=== PATIENT | female | born 1955 | race Caucasian/White ===

== ENCOUNTER 2020-12-18 12:15 | Emergency (ER) | payer MEDICARE, OTHER ==
[2020-12-18] MEDS ORDERED: Sodium Chloride 0.9% 10 ML Syringe FLUSH PRN (12:23)
[2020-12-18 12:28] VITALS: BP 118/72; PULSE 106
--- NOTE | 2020-12-18 12:50 | EDM.PDOC ---
ED HPI GENERAL MEDICAL PROBLEM - General Chief Complaint: Chest Pain Stated Complaint: CHEST PAIN Time Seen by Provider: 12/18/20 12:23 Source of Information: Reports: Patient, RN Notes Reviewed History Limitations: Reports: No Limitations - History of Present Illness INITIAL COMMENTS - FREE TEXT/NARRATIVE: Patient is a 65-year-old female who presents to the ER for evaluation of her sudden onset back/chest discomfort. Patient notes she has been having ongoing issues with shortness of breath and chest discomfort since this last . She was seen by her provider in [facility] on for shortness of breath, was placed on a course of prednisone, and she notes that this is helped the shortness of breath. She states that today however she was laying on her couch, doing nothing at all when that she had a shooting pain into her back between her shoulder blades at around 10 AM. She says it is hard to describe, but notes that it is very sharp. She is not having any nausea/vomiting/diarrhea, she does not think she has any indigestion or heartburn issues. She has had no fevers or chills that she is aware of, but she is pretty diaphoretic on the time of triage. She notes that she had x-ray, and her BNP was done on and her BNP was 487. She has an appointment with Dr. Preciado on December 19, to get scheduled for possible echocardiogram, and cardiac stress test. Patient's pain is roughly 6 out of 10, she notes that she took a tramadol this morning, but this did not seem to help. She notes that nothing seems to really make it worse or nothing really seems to make it get better. - Related Data Allergies Allergy/AdvReac Type Severity Reaction Status Date / Time grover flavor Allergy Anaphylactic Verified 09/28/14 11:20 Shock colesevelam HCl Allergy Muscle Verified 09/28/14 11:20 [From WelChol] Weakness erythromycin lactobionate Allergy Hives Verified 09/28/14 11:20 [From Erythrocin] metoclopramide Allergy Arrhythmias Verified 09/28/14 11:20 metoprolol succinate Allergy Cough Verified 09/28/14 11:20 [From Toprol XL] nitrofurantoin Allergy Vomiting Verified 09/28/14 11:20 macrocrystalline [From Macrodantin] Kfjtanu-Lsa-Dxs Reductase Allergy Muscle Verified 09/28/14 11:20 Inhibitor Weakness terbutaline Allergy Hives Verified 09/28/14 11:20 opsite Allergy Itching Uncoded 09/21/14 13:14 tape Allergy Itching Uncoded 09/21/14 13:14 Home Meds: Home Meds Acetaminophen [Tylenol Extra Strength] 1,000 mg PO BID 09/21/14 [History] Albuterol [Proventil HFA] 2 puff INH DAILY PRN 09/21/14 [History] Aspirin [Adult Low Dose Aspirin EC] 81 mg PO DAILY 09/21/14 [History] Budesonide [Rhinocort Aqua] 2 spray TANIA DAILY 09/21/14 [History] Calcium Carb/Magnesium Oxid/D3 [Calcium Magnesium + D] 1 tab PO DAILY 09/21/14 [History] Cholecalciferol (Vitamin D3) [Vitamin D3] 1 tab PO DAILY 09/21/14 [History] Fish Oil/Borage/Flax/Om3,6,9 1 [Matthews 3-6-9 Complex Softgel] 5 tab PO DAILY 09/21/14 [History] Furosemide 20 mg PO DAILY 09/21/14 [History] Furosemide 40 mg PO DAILY 09/21/14 [History] Gabapentin 300 - 600 mg PO BEDTIME 09/21/14 [History] LORazepam [Ativan] 1 mg PO BEDTIME 09/21/14 [History] Lansoprazole 30 mg PO DAILY 09/21/14 [History] Levothyroxine Sodium 175 mcg PO DAILY 09/21/14 [History] Losartan [Cozaar] 100 mg PO DAILY 09/21/14 [History] Multivitamin [Multivitamins] 1 tab PO DAILY 09/21/14 [History] Naproxen Sodium [Aleve] 440 mg PO BID 09/21/14 [History] Pravastatin Sodium 20 mg PO ASDIRECTED 09/21/14 [History] Sertraline HCl 100 mg PO DAILY 09/21/14 [History] Ticagrelor [Brilinta] 90 mg PO BID 09/21/14 [History] Ubidecarenone [Co Q-10] 100 mg PO DAILY 09/21/14 [History] traMADol HCl [Tramadol HCl] 100 mg PO BID 09/21/14 [History] Potassium Chloride 40 meq PO DAILY #14 tablet.er 12/18/20 [Rx] Past Medical History Cardiovascular History: Reports: NC (?questionable), Stents ED ROS GENERAL - Review of Systems Review Of Systems: Comprehensive ROS is negative, except as noted in HPI. ED EXAM, GENERAL - Physical Exam Exam: See Below Exam Limited By: No Limitations General Appearance: Alert, WD/WN, No Apparent Distress (pt has generalized diaphoreseis) Respiratory/Chest: No Respiratory Distress, Lungs Clear, Normal Breath Sounds, No Accessory Muscle Use, Chest Non-Tender Cardiovascular: Normal Peripheral Pulses, Regular Rate, Rhythm, No Edema Peripheral Pulses: 2+: Radial (L), Radial (R) Extremities: Normal Inspection, Normal Capillary Refill Neurological: Alert, Oriented, Normal Cognition, No Motor/Sensory Deficits Psychiatric: Normal Affect, Normal Mood Skin Exam: Warm, Intact, Normal Color, No Rash, Diaphoretic (general diaphoresis) #1 Interpretation EKG Date: 12/18/20 Time: 12:47 Rhythm: NSR Rate (Beats/Min): 85 Wana: Normal P-Wave: Present QRS: Normal ST-T: Normal QT: Prolonged (QTc at 522) EKG Interpretation Comments: No obvious ischemia or acute ST changes noted, reviewed by myself and Dr. Hdez. Course - Vital Signs Last Recorded V/S: Last Vital Signs Temp 97.2 F 12/18/20 12:24 Pulse 106 H 12/18/20 12:24 Resp 26 H 12/18/20 12:24 BP 118/72 12/18/20 12:24 Pulse Ox 97 12/18/20 12:24 - Orders/Labs/Meds Orders: Active Orders 24 hr Category Date Time Status EKG Documentation Completion [RC] STAT Care 12/18/20 12:24 Active Peripheral IV Care [RC] . DIRECTED Care 12/18/20 12:24 Active Sodium Chloride 0.9% [Saline Flush] Med 12/18/20 12:23 Active 10 ml FLUSH ASDIRECTED PRN Peripheral IV Insertion Adult [OM.PC] Stat Oth 12/18/20 12:24 Ordered Medication Orders Sodium Chloride (Sodium Chloride 0.9% 10 Ml Syringe) 10 ml FLUSH ASDIRECTED PRN PRN Reason: Keep Vein Open Last Admin: 12/18/20 12:30 Dose: 10 ml Documented by: JAMESON Labs: Laboratory Tests 12/18/20 12/18/20 12/18/20 Range/Units 12:30 12:30 12:30 WBC 9.36 (3.98-10.04) K/mm3 RBC 4.02 (3.98-5.22) M/mm3 Hgb 11.7 (11.2-15.7) gm/dl Hct 35.8 (34.1-44.9) % MCV 89.1 (79.4-94.8) fl MCH 29.1 (25.6-32.2) pg MCHC 32.7 (32.2-35.5) g/dl RDW Std Deviation 46.9 H (36.4-46.3) fL Plt Count 330 (182-369) K/mm3 MPV 10.4 (9.4-12.3) fl Neut % (Auto) 69.2 (34.0-71.1) % Lymph % (Auto) 23.1 (19.3-51.7) % Leslie % (Auto) 7.4 (4.7-12.5) % Eos % (Auto) 0.1 L (0.7-5.8) Baso % (Auto) 0.1 (0.1-1.2) % Neut # (Auto) 6.48 H (1.56-6.13) K/mm3 Lymph # (Auto) 2.16 (1.18-3.74) K/mm3 Leslie # (Auto) 0.69 H (0.24-0.36) K/mm3 Eos # (Auto) 0.01 L (0.04-0.36) K/mm3 Baso # (Auto) 0.01 (0.01-0.08) K/mm3 PT 10.8 (9.7-12.0) SECONDS INR 1.01 APTT 22.9 (21.7-31.4) SECONDS Sodium 146 H (136-145) mEq/L Potassium 2.9 L (3.5-5.1) mEq/L Chloride 106 (98-107) mEq/L Carbon Dioxide 26 (21-32) mEq/L Anion Gap 16.9 H (5-15) BUN 26 H (7-18) mg/dL Creatinine 1.1 H (0.55-1.02) mg/dL Est Cr Clr Drug Dosing 41.05 mL/min Estimated GFR (MDRD) 50 (>60) mL/min BUN/Creatinine Ratio 23.6 H (14-18) Glucose 103 H (70-99) mg/dL Calcium 8.5 (8.5-10.1) mg/dL Magnesium 1.8 (1.8-2.4) mg/dL Total Bilirubin 0.3 (0.2-1.0) mg/dL AST 17 (15-37) U/L ALT 34 (14-59) U/L Alkaline Phosphatase 69 (46-116) U/L Troponin I 0.020 (0.00-0.056) ng/mL NT-Pro-B Natriuret Pep (0-125) pg/mL Total Protein 7.7 (6.4-8.2) g/dl Albumin 3.4 (3.4-5.0) g/dl Globulin 4.3 gm/dL Albumin/Globulin Ratio 0.8 L (1-2) 12/18/20 12/18/20 Range/Units 12:30 15:32 WBC (3.98-10.04) K/mm3 RBC (3.98-5.22) M/mm3 Hgb (11.2-15.7) gm/dl Hct (34.1-44.9) % MCV (79.4-94.8) fl MCH (25.6-32.2) pg MCHC (32.2-35.5) g/dl RDW Std Deviation (36.4-46.3) fL Plt Count (182-369) K/mm3 MPV (9.4-12.3) fl Neut % (Auto) (34.0-71.1) % Lymph % (Auto) (19.3-51.7) % Leslie % (Auto) (4.7-12.5) % Eos % (Auto) (0.7-5.8) Baso % (Auto) (0.1-1.2) % Neut # (Auto) (1.56-6.13) K/mm3 Lymph # (Auto) (1.18-3.74) K/mm3 Leslie # (Auto) (0.24-0.36) K/mm3 Eos # (Auto) (0.04-0.36) K/mm3 Baso # (Auto) (0.01-0.08) K/mm3 PT (9.7-12.0) SECONDS INR APTT (21.7-31.4) SECONDS Sodium (136-145) mEq/L Potassium (3.5-5.1) mEq/L Chloride (98-107) mEq/L Carbon Dioxide (21-32) mEq/L Anion Gap (5-15) BUN (7-18) mg/dL Creatinine (0.55-1.02) mg/dL Est Cr Clr Drug Dosing mL/min Estimated GFR (MDRD) (>60) mL/min BUN/Creatinine Ratio (14-18) Glucose (70-99) mg/dL Calcium (8.5-10.1) mg/dL Magnesium (1.8-2.4) mg/dL Total Bilirubin (0.2-1.0) mg/dL AST (15-37) U/L ALT (14-59) U/L Alkaline Phosphatase (46-116) U/L Troponin I 0.020 (0.00-0.056) ng/mL NT-Pro-B Natriuret Pep 8497 H (0-125) pg/mL Total Protein (6.4-8.2) g/dl Albumin (3.4-5.0) g/dl Globulin gm/dL Albumin/Globulin Ratio (1-2) Meds: Medications Generic Name Dose Route Start Last Admin Trade Name Brandon PRN Reason Stop Dose Admin Sodium Chloride 10 ml 12/18/20 12:23 12/18/20 12:30 Sodium Chloride 0.9% 10 Ml Syringe FLUSH 10 ml ASDIRECTED PRN Administration Keep Vein Open Discontinued Medications Generic Name Dose Route Start Last Admin Trade Name Freq PRN Reason Stop Dose Admin Al Hydroxide/Mg Hydroxide 30 0 ml 12/18/20 15:53 ml/ Lidocaine HCl 15 ml PO 12/18/20 15:54 ONETIME ONE Potassium Chloride 40 meq 12/18/20 13:15 12/18/20 13:41 Potassium Chloride 20 Meq Tab.Er PO 12/18/20 13:16 40 meq ONETIME ONE Administration - Re-Assessments/Exams Free Text/Narrative Re-Assessment/Exam: 12/18/20 13:10 Patient presents to the ER for her chest pain, EKG was done at time of triage and shows no acute ST change or abnormalities appreciable myself or Dr. Hdez. Labs will be obtained for further evaluation, chest x-ray was read as findings suspicious for mild CHF. 12/18/20 13:19 Laboratory evaluation demonstrates a within normal limits CBC, coagulation studies are acceptable, patient's metabolic panel is impressive for a slightly low sodium at 2.9, for which I have ordered 40 mEq oral potassium. Patient does appear to be slightly dehydrated, by slightly elevated creatinine, anion gap. Her troponin is 0.020. Still awaiting BNP level at this time. 12/18/20 13:48 We will go ahead and do a repeat 3-hour troponin, to make sure that it is getting better as expected. Orders have been placed for 15:30. Patient has been made aware and she is agreeable to this plan. 12/18/20 15:54 Awaiting the 3-hour troponin level, nursing staff did going to reassess the patient and they note that she is having some heartburn or indigestion, we will go ahead and give her a GI cocktail. Her BNP has come back 8497, highly suspect that the small bump in troponin is due to the BNP elevation and heart strain. Current medication list demonstrates the patient is on Lasix 40 mg daily I will have her increase that to twice daily, and have her take some potassium supplements in the interim, she will follow up with Dr. Preciado tomorrow, she should have labs redrawn within the next few days to make sure that her potassium is staying within normal limits. 12/18/20 16:08 Troponin stayed at 0.020. We will go ahead and discharge the patient home with general recommendations along with the above plan. Departure - Departure Time of Disposition: 15:56 Disposition: Home, Self-Care 01 Condition: Good Clinical Impression: Hypokalemia, Atypical chest pain CHF (congestive heart failure) Qualifiers: Heart failure type: other Qualified Code(s): I50.9 - Heart failure, unspecified Prescriptions: Potassium Chloride 40 meq PO DAILY #14 tablet.er Instructions: Heart Failure, Self Care, [id number], Heart Failure Eating Plan Referrals: Den Preciado MD [Primary Care Provider] - Forms: ED Department Discharge Additional Instructions: You were evaluated in the ER today for your back pain. EKG, chest x-ray, and laboratory evaluation was most conclusive with an exacerbation of congestive heart failure. As you noted, you have a appointment with Dr. Preciado tomorrow for ongoing management regarding possible echo and cardiac stress test, please go to this appointment tomorrow and get scheduled for these tests as this would help evaluate well how your heart is actually functioning. Your troponin level is thought to have a small increase, due to the amount of fluid/CHF you are having. This is more of a heart strain type pattern, and sometimes can elevate your troponin level a small amount. Your BNP at today's visit was 8497, which is quite elevated. You will need to start taking your Lasix, 40 mg twice daily, this is an increase from 1 tablet daily. You will also need to start taking oral potassium, as your potassium was low at this ER visit. The increase Lasix dose, will continue to cause derangements in your potassium, hence the need for potassium oral replacement. Highly recommend that you have your laboratory evaluation retaken, sometime mid to late next week, to make sure that potassium level is within normal limits, and that your BMP is improving. Your potassium prescription was sent to the [place] pharmacy located in the [facility] store, you will need to go there tomorrow during normal business hours to pick this up and take as directed. Please return to the ER at any time if symptoms change or worsen. Sepsis Event Note (ED) - Evaluation Sepsis Screening Result: No Definite Risk - Focused Exam Vital Signs: Vital Signs Temp Pulse Resp BP Pulse Ox 12/18/20 12:24 97.2 F 106 H 26 H 118/72 97 - My Orders Last 24 Hours: My Active Orders 12/18/20 12:23 Sodium Chloride 0.9% [Saline Flush] 10 ml FLUSH ASDIRECTED PRN 12/18/20 12:24 EKG Documentation Completion [RC] STAT Peripheral IV Care [RC] . DIRECTED Peripheral IV Insertion Adult [OM.PC] Stat - Assessment/Plan Last 24 Hours: My Active Orders 12/18/20 12:23 Sodium Chloride 0.9% [Saline Flush] 10 ml FLUSH ASDIRECTED PRN 12/18/20 12:24 EKG Documentation Completion [RC] STAT Peripheral IV Care [RC] . DIRECTED Peripheral IV Insertion Adult [OM.PC] Stat
--- NOTE | 2020-12-18 13:12 | CR ---
Chest: Portable view of the chest was obtained. Comparison: No prior chest imaging is available. Heart is enlarged. Pulmonary vessels are congested. Lungs otherwise are clear. Bony structures are grossly intact. Impression: 1. Findings suspicious for mild CHF. Diagnostic code #3
[2020-12-18] MEDS ORDERED: Potassium Chloride 20 MEQ Tab.ER PO ONE (13:15)
[2020-12-18] MEDS ORDERED: Alum Hydrox/Mag Hydrox/Simeth 30 ML, Lidocaine 2% 15 ML PO ONE ×2 (15:53)
== END 2020-12-18 16:50 | disposition home or self-care (01) ==
LOC: JD.ED 12:15
DX: I50.9 Heart failure, unspecified (principal); E87.6 Hypokalemia; I25.2 Old myocardial infarction; Z91.018 Allergy to other foods; Z88.1 Allergy status to other antibiotic agents; Z88.8 Allergy status to other drugs, medicaments and biological substances; Z91.048 Other nonmedicinal substance allergy status; Z79.82 Long term (current) use of aspirin; Z79.899 Other long term (current) drug therapy
CPT/HCPCS: 36415; 71045; 80053; 83735; 83880; 84484; 85025; 85610; 85730; 93005; 99285; A9270; 93010; 99284

== ENCOUNTER 2021-01-02 20:53 | Emergency (ER) | payer MEDICARE, OTHER ==
[2021-01-02 21:27] VITALS: BP 98/64; PULSE 94
[2021-01-02] MEDS ORDERED: Ondansetron 4 MG/2 ML SDV IVPUSH ONE (21:38)
[2021-01-02] MEDS ORDERED: Sodium Chloride 0.9% 10 ML Syringe FLUSH PRN (21:38)
[2021-01-02] MEDS ORDERED: Sodium Chloride 0.9% 1,000 ML IV SCH (21:45)
--- NOTE | 2021-01-02 21:57 | EDM.PDOC ---
ED HPI GENERAL MEDICAL PROBLEM - General Chief Complaint: Gastrointestinal Problem Stated Complaint: VOMITING Time Seen by Provider: 01/02/21 21:24 Source of Information: Reports: Patient, Family History Limitations: Reports: No Limitations - History of Present Illness INITIAL COMMENTS - FREE TEXT/NARRATIVE: The patient presents for nausea and vomiting. This started yesterday about 3pm after she was discharged from the hospital after getting a heart cath. She did not need stents. She has no pain such as chest pain, abdominal pain, or headache. She just cannot keep anything down. She has no fever but she does have chills. She has no diarrhea. She has no cough or congestion. Onset: Gradual Duration: Day(s): (Yesterda at 3pm) Severity: Moderate Improves with: Reports: None Worsens with: Reports: None Associated Symptoms: Reports: Fever/Chills, Nausea/Vomiting. Denies: Chest Pain, Cough, Headaches, Shortness of Breath - Related Data Allergies Allergy/AdvReac Type Severity Reaction Status Date / Time grover flavor Allergy Severe Anaphylactic Verified 01/03/21 00:33 Shock colesevelam HCl Allergy Severe Muscle Verified 01/03/21 00:33 [From WelChol] Weakness erythromycin lactobionate Allergy Severe Hives Verified 01/03/21 00:33 [From Erythrocin] metoclopramide Allergy Severe Arrhythmias Verified 01/03/21 00:33 metoprolol succinate Allergy Severe Cough Verified 01/03/21 00:33 [From Toprol XL] nitrofurantoin Allergy Severe Vomiting Verified 01/03/21 00:33 macrocrystalline [From Macrodantin] Nsbratc-[id number]-Ttb Reductase Allergy Severe Muscle Verified 01/03/21 00:33 Inhibitor Weakness terbutaline Allergy Severe Hives Verified 01/03/21 00:33 opsite Allergy Severe Itching Uncoded 01/03/21 00:33 tape Allergy Severe Itching Uncoded 01/03/21 00:33 Home Meds: Home Meds Acetaminophen [Tylenol Extra Strength] 1,000 mg PO BID 09/21/14 [History] Albuterol [Proventil HFA] 2 puff INH DAILY PRN 09/21/14 [History] Aspirin [Adult Low Dose Aspirin EC] 81 mg PO DAILY 09/21/14 [History] Budesonide [Rhinocort Aqua] 2 spray TANIA DAILY 09/21/14 [History] Calcium Carb/Magnesium Oxid/D3 [Calcium Magnesium + D] 1 tab PO DAILY 09/21/14 [History] Cholecalciferol (Vitamin D3) [Vitamin D3] 1 tab PO DAILY 09/21/14 [History] Fish Oil/Borage/Flax/Om3,6,9 1 [[place] 3-6-9 Complex Softgel] 5 tab PO DAILY 09/21/14 [History] Furosemide 40 mg PO DAILY 09/21/14 [History] Gabapentin 300 - 600 mg PO BEDTIME 09/21/14 [History] LORazepam [Ativan] 1.5 mg PO BEDTIME 09/21/14 [History] Lansoprazole 30 mg PO DAILY 09/21/14 [History] Losartan [Cozaar] 50 mg PO DAILY 09/21/14 [History] Multivitamin [Multivitamins] 1 tab PO DAILY 09/21/14 [History] Naproxen Sodium [Aleve] 440 mg PO BID 09/21/14 [History] Sertraline HCl 1.5 tab PO DAILY 09/21/14 [History] Ticagrelor [Brilinta] 90 mg PO BID 09/21/14 [History] Ubidecarenone [Co Q-10] 100 mg PO DAILY 09/21/14 [History] traMADol HCl [Tramadol HCl] 100 mg PO Q6HR 09/21/14 [History] Potassium Chloride 40 meq PO DAILY #14 tablet.er 12/18/20 [Rx] Levothyroxine Sodium [Levothyroxine] 137 mcg PO DAILY 01/03/21 [History] Ondansetron [Zofran ODT] 4 mg PO Q6H PRN #20 tab.dis 01/03/21 [Rx] Past Medical History HEENT History: Reports: Impaired Vision Other HEENT History: wears eyeglasses. 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 Endocrine/Metabolic History: Reports: Hypothyroidism Dermatologic History: Reports: Eczema - Infectious Disease History Infectious Disease History: Reports: Measles, Mumps, Shingles - Past Surgical History Female Surgical History: Reports: Hysterectomy Musculoskeletal Surgical History: Reports: Knee Replacement Social & Family History - Family History Family Medical History: No Pertinent Family History - Tobacco Use Tobacco Use Status *Q: Never Tobacco User Second Hand Smoke Exposure: No - Caffeine Use Caffeine Use: Reports: Soda - Recreational Drug Use Recreational Drug Use: No ED ROS GENERAL - Review of Systems Review Of Systems: See Below Constitutional: Reports: Chills. Denies: Fever HEENT: Reports: No Symptoms Respiratory: Reports: No Symptoms Cardiovascular: Reports: No Symptoms Endocrine: Reports: No Symptoms GI/Abdominal: Reports: Nausea, Vomiting. Denies: Abdominal Pain, Diarrhea : Reports: No Symptoms Musculoskeletal: Reports: No Symptoms Skin: Reports: No Symptoms ED EXAM, GI/ABD - Physical Exam Exam: See Below Exam Limited By: No Limitations General Appearance: Alert, No Apparent Distress Ears: Normal External Exam Nose: Normal Inspection Head: Atraumatic, Normocephalic Neck: Normal Inspection Respiratory/Chest: No Respiratory Distress, Lungs Clear, Normal Breath Sounds Cardiovascular: Regular Rate, Rhythm, No Edema, No Murmur GI/Abdominal Exam: Soft, Non-Tender, No Organomegaly, No Mass Back Exam: Normal Inspection Extremities: Normal Inspection Neurological: Alert, Oriented, No Motor/Sensory Deficits #1 Interpretation EKG Date: 01/02/21 Time: 22:10 Rhythm: NSR Rate (Beats/Min): 91 [place]: Normal P-Wave: Present QRS: Normal ST-T: Other (global flattened T waves) QT: Prolonged #2 Interpretation EKG Date: 01/03/21 Time: 04:34 Rhythm: Other (sinus tachycardia) Rate (Beats/Min): 100 [place]: Normal P-Wave: Present QRS: Normal ST-T: Normal QT: Prolonged Course - Vital Signs Last Recorded V/S: Last Vital Signs Temp 96.5 F L 01/02/21 21:22 Pulse 94 01/02/21 21:22 Resp 20 01/02/21 21:22 BP 98/64 01/02/21 21:22 Pulse Ox 98 01/02/21 21:22 - Orders/Labs/Meds Orders: Active Orders 24 hr Category Date Time Status EKG Documentation Completion [RC] ASDIRECTED Care 01/02/21 21:52 Active EKG Documentation Completion [RC] ASDIRECTED Care 01/03/21 04:52 Active Peripheral IV Care [RC] . DIRECTED Care 01/02/21 21:38 Active Abdomen Pelvis wo Cont [CT] Stat Exams 01/03/21 00:47 Taken Sodium Chloride 0.9% [Normal Saline] 1,000 ml Med 01/02/21 21:45 Active IV .BOLUS Sodium Chloride 0.9% [Saline Flush] Med 01/02/21 21:38 Active 10 ml FLUSH ASDIRECTED PRN ED Antiemetic Medication Reflex [OM.PC] Click to Edit Oth 01/02/21 21:38 Ordered Peripheral IV Insertion Adult [OM.PC] Urgent Oth 01/02/21 21:38 Ordered EKG 12 Lead [EK] Stat Ther 01/02/21 21:52 Ordered EKG 12 Lead [EK] Stat Ther 01/03/21 04:51 Ordered Medication Orders Sodium Chloride (Normal Saline) 1,000 mls @ 1,000 mls/hr IV .BOLUS RAYMOND Last Admin: 01/02/21 21:59 Dose: 1,000 mls/hr Documented by: MATHEW Sodium Chloride (Sodium Chloride 0.9% 10 Ml Syringe) 10 ml FLUSH ASDIRECTED PRN PRN Reason: Keep Vein Open Last Admin: 01/02/21 22:25 Dose: 10 ml Documented by: EDISON Labs: Laboratory Tests 01/02/21 01/02/21 01/02/21 Range/Units 22:27 22:27 22:47 WBC 7.96 (3.98-10.04) K/mm3 RBC 4.16 (3.98-5.22) M/mm3 Hgb 12.1 (11.2-15.7) gm/dl Hct 36.7 (34.1-44.9) % MCV 88.2 (79.4-94.8) fl MCH 29.1 (25.6-32.2) pg MCHC 33.0 (32.2-35.5) g/dl RDW Std Deviation 44.7 (36.4-46.3) fL Plt Count 194 D (182-369) K/mm3 MPV 10.7 (9.4-12.3) fl Neut % (Auto) 68.2 (34.0-71.1) % Lymph % (Auto) 22.4 (19.3-51.7) % Faulk % (Auto) 8.5 (4.7-12.5) % Eos % (Auto) 0.3 L (0.7-5.8) Baso % (Auto) 0.3 (0.1-1.2) % Neut # (Auto) 5.44 (1.56-6.13) K/mm3 Lymph # (Auto) 1.78 (1.18-3.74) K/mm3 Faulk # (Auto) 0.68 H (0.24-0.36) K/mm3 Eos # (Auto) 0.02 L (0.04-0.36) K/mm3 Baso # (Auto) 0.02 (0.01-0.08) K/mm3 Sodium 142 (136-145) mEq/L Potassium 3.7 (3.5-5.1) mEq/L Chloride 107 (98-107) mEq/L Carbon Dioxide 20 L (21-32) mEq/L Anion Gap 18.7 H (5-15) BUN 12 (7-18) mg/dL Creatinine 0.9 (0.55-1.02) mg/dL Est Cr Clr Drug Dosing TNP Estimated GFR (MDRD) > 60 (>60) mL/min BUN/Creatinine Ratio 13.3 L (14-18) Glucose 91 (70-99) mg/dL Calcium 9.1 (8.5-10.1) mg/dL Total Bilirubin 0.5 (0.2-1.0) mg/dL AST 29 (15-37) U/L ALT 35 (14-59) U/L Alkaline Phosphatase 70 (46-116) U/L Troponin I < 0.017 (0.00-0.056) ng/mL Total Protein 7.0 (6.4-8.2) g/dl Albumin 3.2 L (3.4-5.0) g/dl Globulin 3.8 gm/dL Albumin/Globulin Ratio 0.8 L (1-2) Lipase 85 (73-393) U/L Urine Color (Yellow) Urine Appearance (Clear) Urine pH (5.0-8.0) Ur Specific [place] (1.005-1.030) Urine Protein (Negative) Urine Glucose (UA) (Negative) Urine Ketones (Negative) Urine Occult Blood (Negative) Urine Nitrite (Negative) Urine Bilirubin (Negative) Urine Urobilinogen (0.2-1.0) Ur Leukocyte Esterase (Negative) U Hyaline Cast (Auto) (0-5) /lpf Urine RBC (0-5) /hpf Urine WBC (0-5) /hpf Ur Squamous Epith Cells (0-5) /hpf Urine Bacteria (FEW) /hpf Urine Mucus (FEW) /hpf 01/03/21 01/03/21 Range/Units 02:00 04:37 WBC (3.98-10.04) K/mm3 RBC (3.98-5.22) M/mm3 Hgb (11.2-15.7) gm/dl Hct (34.1-44.9) % MCV (79.4-94.8) fl MCH (25.6-32.2) pg MCHC (32.2-35.5) g/dl RDW Std Deviation (36.4-46.3) fL Plt Count (182-369) K/mm3 MPV (9.4-12.3) fl Neut % (Auto) (34.0-71.1) % Lymph % (Auto) (19.3-51.7) % Faulk % (Auto) (4.7-12.5) % Eos % (Auto) (0.7-5.8) Baso % (Auto) (0.1-1.2) % Neut # (Auto) (1.56-6.13) K/mm3 Lymph # (Auto) (1.18-3.74) K/mm3 Faulk # (Auto) (0.24-0.36) K/mm3 Eos # (Auto) (0.04-0.36) K/mm3 Baso # (Auto) (0.01-0.08) K/mm3 Sodium (136-145) mEq/L Potassium (3.5-5.1) mEq/L Chloride (98-107) mEq/L Carbon Dioxide (21-32) mEq/L Anion Gap (5-15) BUN (7-18) mg/dL Creatinine (0.55-1.02) mg/dL Est Cr Clr Drug Dosing Estimated GFR (MDRD) (>60) mL/min BUN/Creatinine Ratio (14-18) Glucose (70-99) mg/dL Calcium (8.5-10.1) mg/dL Total Bilirubin (0.2-1.0) mg/dL AST (15-37) U/L ALT (14-59) U/L Alkaline Phosphatase (46-116) U/L Troponin I 0.031 (0.00-0.056) ng/mL Total Protein (6.4-8.2) g/dl Albumin (3.4-5.0) g/dl Globulin gm/dL Albumin/Globulin Ratio (1-2) Lipase (73-393) U/L Urine Color Yellow (Yellow) Urine Appearance Clear (Clear) Urine pH 5.5 (5.0-8.0) Ur Specific [place] > or = 1.030 (1.005-1.030) Urine Protein Trace H (Negative) Urine Glucose (UA) Negative (Negative) Urine Ketones 2+ H (Negative) Urine Occult Blood Negative (Negative) Urine Nitrite Negative (Negative) Urine Bilirubin 2+ H (Negative) Urine Urobilinogen 0.2 (0.2-1.0) Ur Leukocyte Esterase Negative (Negative) U Hyaline Cast (Auto) 0-5 (0-5) /lpf Urine RBC 0-5 (0-5) /hpf Urine WBC 0-5 (0-5) /hpf Ur Squamous Epith Cells 0-5 (0-5) /hpf Urine Bacteria Few (FEW) /hpf Urine Mucus Many H (FEW) /hpf Meds: Medications Generic Name Dose Route Start Last Admin Trade Name Freq PRN Reason Stop Dose Admin Sodium Chloride 1,000 mls @ 1,000 mls/hr 01/02/21 21:45 01/02/21 21:59 Normal Saline IV 1,000 mls/hr .BOLUS RAYMOND Administration Sodium Chloride 10 ml 01/02/21 21:38 01/02/21 22:25 Sodium Chloride 0.9% 10 Ml Syringe FLUSH 10 ml ASDIRECTED PRN Administration Keep Vein Open Discontinued Medications Generic Name Dose Route Start Last Admin Trade Name Freq PRN Reason Stop Dose Admin Diphenhydramine HCl 50 mg 01/02/21 23:56 01/03/21 00:03 Diphenhydramine 50 Mg/Ml Sdv IVPUSH 01/02/21 23:57 50 mg ONETIME ONE Administration Famotidine 20 mg 01/03/21 02:37 01/03/21 02:46 Famotidine 20 Mg/2 Ml Sdv IVPUSH 01/03/21 02:38 20 mg ONETIME ONE Administration Hydromorphone HCl 0.5 mg 01/03/21 03:45 01/03/21 03:50 Hydromorphone 0.5 Mg/0.5 Ml Syringe IVPUSH 01/03/21 03:46 0.5 mg ONETIME ONE Administration Sodium Chloride 1,000 mls @ 1,000 mls/hr 01/02/21 23:09 01/02/21 23:35 Normal Saline IV 01/03/21 00:08 1,000 mls/hr ONETIME ONE Administration Metoclopramide HCl 10 mg 01/02/21 23:20 01/02/21 23:35 Metoclopramide 10 Mg/2 Ml Sdv IVPUSH 01/02/21 23:21 10 mg ONETIME ONE Administration Ondansetron HCl 4 mg 01/02/21 21:38 01/02/21 21:59 Ondansetron 4 Mg/2 Ml Sdv IVPUSH 01/02/21 21:39 4 mg ONETIME ONE Administration Ondansetron HCl 4 mg 01/03/21 02:37 01/03/21 02:46 Ondansetron 4 Mg/2 Ml Sdv IVPUSH 01/03/21 02:38 4 mg ONETIME ONE Administration - Re-Assessments/Exams Free Text/Narrative Re-Assessment/Exam: 01/02/21 21:56 I ordered an IV NS 1L bolus, zofran 4mg IV, labs, UA, and EKG. 01/02/21 22:32 Her EKG shows a NSR with no acute changes. 01/03/21 00:36 Her CBC looks good. Her anion gap was a little elevated at 18.7. Her lipase is normal. She felt a little better. I ordered some reglan 10mg IV and more fluids. I went back in and she was a little anxious and did not know how she felt. I think she may be reacting to the reglan. I ordered some benadryl 50mg IV to help with that and let her rest. Her son caught me outside the room and said she is under lots of stress. Her is at [facility] for brain cancer and may this week. She also just had an angiogram. 01/03/21 02:[address] shows increased attenuation of the gallbladder contents which may rep resent sludge, stones or vicarious excretion of previous intravenous contrast load. No associated CT signs of cholecystitis. Post hysterectomy. She still does not feel right. I will give her a dose of zofran and some pepcid. 01/03/21 06:39 She still had some nausea and discomfort in her upper abdomen. I ordered some dilaudid 0.5mg IV. My nurse noticed some PVCs on her heart tracing. I ordered a repeat EKG and a repeat troponin. Her repeat EKG shows no change from prior. Her repeat EKG was normal. She wanted to try some ice water and that so far has stayed down. We had a long talk. She is dealing with lots of issues. Her has lung cancer with mets to the brain and he is on end of life care at [facility] in [place]. He is not expected to survive much longer. She had an appointment with her [employer] supervisor on Saturday and she was a direct admit to the hospital in [place] after that and had an angiogram. The angiogram looked good and she did not need stents. She was discharged on Saturday and ever since then she has been vomiting. I will discharge her home with some zofran. Her gallbladder has some sludge and possible small stones. This still could be a contributing factor and she should avoid fatty food and follow up with her doctor. Departure - Departure Time of Disposition: 18:45 Disposition: Home, Self-Care 01 Condition: Good Clinical Impression: Abdominal pain, Gallbladder sludge Nausea and vomiting Qualifiers: Vomiting type: unspecified Vomiting Intractability: non-intractable Qualified Code(s): R11.2 - Nausea with vomiting, unspecified - Discharge Information *PRESCRIPTION DRUG MONITORING PROGRAM REVIEWED*: Not Applicable *COPY OF PRESCRIPTION DRUG MONITORING REPORT IN PATIENT EKRI: Not Applicable Prescriptions: Ondansetron [Zofran ODT] 4 mg PO Q6H PRN #20 tab.dis PRN Reason: Nausea\vomiting Referrals: PCP,None [Primary Care Provider] - Anthony Harris MD [Physician] - 1 Week Forms: ED Department Discharge Additional Instructions: Drink plenty of fluids. Take the zofran every 6 hours as needed for nausea and vomiting. Try to avoid fried fatty food. Follow up with your doctor within a week or Dr Harris our general surgeon consolidator. Please return if you are worse. Sepsis Event Note (ED) - Evaluation Sepsis Screening Result: No Definite Risk - Focused Exam Vital Signs: Vital Signs Temp Pulse Resp BP Pulse Ox 01/02/21 21:22 96.5 F L 94 20 98/64 98 - My Orders Last 24 Hours: My Active Orders 01/02/21 21:38 Peripheral IV Care [RC] . DIRECTED Sodium Chloride 0.9% [Saline Flush] 10 ml FLUSH ASDIRECTED PRN ED Antiemetic Medication Reflex [OM.PC] Click to Edit Peripheral IV Insertion Adult [OM.PC] Urgent 01/02/21 21:45 Sodium Chloride 0.9% [Normal Saline] 1,000 ml IV .BOLUS 01/02/21 21:52 EKG Documentation Completion [RC] ASDIRECTED EKG 12 Lead [EK] Stat 01/03/21 00:47 Abdomen Pelvis wo Cont [CT] Stat 01/03/21 04:51 EKG 12 Lead [EK] Stat 01/03/21 04:52 EKG Documentation Completion [RC] ASDIRECTED - Assessment/Plan Last 24 Hours: My Active Orders 01/02/21 21:38 Peripheral IV Care [RC] . DIRECTED Sodium Chloride 0.9% [Saline Flush] 10 ml FLUSH ASDIRECTED PRN ED Antiemetic Medication Reflex [OM.PC] Click to Edit Peripheral IV Insertion Adult [OM.PC] Urgent 01/02/21 21:45 Sodium Chloride 0.9% [Normal Saline] 1,000 ml IV .BOLUS 01/02/21 21:52 EKG Documentation Completion [RC] ASDIRECTED EKG 12 Lead [EK] Stat 01/03/21 00:47 Abdomen Pelvis wo Cont [CT] Stat 01/03/21 04:51 EKG 12 Lead [EK] Stat 01/03/21 04:52 EKG Documentation Completion [RC] ASDIRECTED
[2021-01-02] MEDS ORDERED: Sodium Chloride 0.9% 1,000 ML IV ONE (23:09)
[2021-01-02] MEDS ORDERED: Metoclopramide 10 MG/2 ML SDV IVPUSH ONE (23:20)
[2021-01-02] MEDS ORDERED: diphenhydrAMINE 50 MG/ML SDV IVPUSH ONE (23:56)
[2021-01-03] MEDS ORDERED: Famotidine 20 MG/2 ML SDV IVPUSH ONE (02:37)
[2021-01-03] MEDS ORDERED: Ondansetron 4 MG/2 ML SDV IVPUSH ONE (02:37)
[2021-01-03] MEDS ORDERED: HYDROmorphone 0.5 MG/0.5 ML Syringe IVPUSH ONE (03:45)
[2021-01-03] MEDS ORDERED: Promethazine 25 MG/ML SDV IM ONE (06:51)
--- NOTE | 2021-01-03 10:40 | CT ---
CT abdomen and pelvis Technique: Multiple axial sections were obtained from above the dome of the diaphragm inferiorly through the pubic symphysis. Intravenous and oral contrast not utilized. Reconstructed coronal and sagittal images were obtained. Comparison: No prior abdominal imaging is available. Findings: Single pleural-based nodule is seen within the left lung base measuring about 5.8 mm. This shows no abnormal calcifications. This is too small to be seen on prior chest CT exam of 12/18/20. Noncontrast appearance of the liver shows no focal abnormality. Increased density is seen within the gallbladder which could represent gallbladder sludge. No shadowing gallstones are seen. Spleen size is normal. Adrenal glands show no nodule. Kidneys show no abnormal calcifications or discrete soft tissue abnormality. Pancreas shows no discrete abnormality. Abdominal aorta shows atherosclerotic calcification with no aneurysm. No retroperitoneal adenopathy or mesenteric abnormalities are seen. Small fat-containing abdominal wall hernia is noted. Previous hysterectomy is noted. No pelvic mass or adenopathy is appreciated. Appendix is equivocally seen and appears normal in size. Bone window settings were reviewed which shows mild compression deformity of L2 which is most likely old. Minimal scattered degenerative change is also seen throughout the visualized spine. Impression: 1. Small pleural-based nodule within the left lung base. 2. Chest CT recommended in 9 months to confirm stability. This follow-up chest CT would occur in September, 3. Increased density within the gallbladder most likely representing sludge. 4. Other findings believed to be incidental as noted above. Diagnostic code #3 I agree with preliminary report from [facility], finalized on 01/03/21, 3:20 AM CDT, code 1
== END 2021-01-03 08:01 | disposition home or self-care (01) ==
LOC: JD.ED 20:53
DX: K82.9 Disease of gallbladder, unspecified (principal); R11.2 Nausea with vomiting, unspecified; I11.0 Hypertensive heart disease with heart failure; I50.9 Heart failure, unspecified; E78.00 Pure hypercholesterolemia, unspecified; I25.2 Old myocardial infarction; E03.9 Hypothyroidism, unspecified; Z79.82 Long term (current) use of aspirin; Z79.899 Other long term (current) drug therapy; Z79.02 Long term (current) use of antithrombotics/antiplatelets; Z88.1 Allergy status to other antibiotic agents; Z88.8 Allergy status to other drugs, medicaments and biological substances; Z91.048 Other nonmedicinal substance allergy status
CPT/HCPCS: 36415; 74176; 80053; 81001; 83690; 84484; 85025; 93005; 96372; 96374; 96375; 96376; 99284; J1170; J1200; J2405; J2550; J2765; J3490; J7030; 93010

== ENCOUNTER 2021-10-30 17:34 | Emergency (ER) | payer MEDICARE, OTHER ==
[2021-10-30] MEDS ORDERED: Sodium Chloride 0.9% 10 ML Syringe FLUSH PRN (17:54)
[2021-10-30] MEDS ORDERED: Sodium Chloride 0.9% 1,000 ML IV SCH (18:00)
[2021-10-30 19:42] VITALS: BP 138/80; PULSE 91
[2021-10-30] MEDS ORDERED: Ondansetron 4 MG/2 ML SDV IVPUSH ONE (20:35)
== END 2021-10-30 21:26 ==
LOC: JD.ED 17:34
DX: R00.8 Other abnormalities of heart beat (principal); I11.0 Hypertensive heart disease with heart failure; I50.9 Heart failure, unspecified; E78.00 Pure hypercholesterolemia, unspecified; I25.2 Old myocardial infarction; E03.9 Hypothyroidism, unspecified; Z95.5 Presence of coronary angioplasty implant and graft; Z86.73 Personal history of transient ischemic attack (TIA), and cerebral infarction without residual deficits; Z88.1 Allergy status to other antibiotic agents; Z88.8 Allergy status to other drugs, medicaments and biological substances; Z91.048 Other nonmedicinal substance allergy status; Z79.82 Long term (current) use of aspirin; Z79.899 Other long term (current) drug therapy; Z20.822 Contact with and (suspected) exposure to COVID-19
CPT/HCPCS: 36415; 70450; 80053; 82947; 83605; 85025; 85610; 86140; 93005; 96374; 99285; J2405; J3490; J7030; U0002; 93010; 99284